=== PATIENT | male | born 1990 | race Caucasian/White ===

== ENCOUNTER 2017-08-18 19:12 | Emergency (ER) | payer SELFPAY ==
[~2017-08-18] VITALS: Ht 177.8 cm; Wt 79.3 kg
[~2017-08-18 19:12] MED LIST: HYDR-3533 PO; IBUP800T23 PO
[2017-08-18] MEDS ORDERED: IOHEXOL 350 MG/ML 10 ML VIAL (for RAD DIAG) IVCONTRAST ONE (19:13)
[2017-08-18 19:16] VITALS: BP 149/63; PULSE 79; RESP 16; TEMP 98.3; O2SAT 97
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
[2017-08-18] MEDS ORDERED: SODIUM CHLORIDE 0.9% FLUSH 10 ML FLUSH IV FLUSH PRN (19:45)
[2017-08-18 19:54] LABS: BLOOD, URINE NEG (NEG); GLUCOSE,URINE NEG (NEG); KETONE, URINE NEG (NEG); NITRITE,URINE NEG (NEG)
[2017-08-18 19:55] LABS: AUTOMATED NEUTROPHIL # 3.9 TH/MM3 (1.8-7.7); BASOPHIL % 0.3 % (0.0-2.0); EOSINOPHIL # 0.1 TH/MM3 (0-0.4); EOSINOPHIL % 1.6 % (0.0-4.0); HEMATOCRIT 40.8 % (39.0-51.0); HEMO FLAGS DIFF FINAL; LYMPH % 34.6 % (9.0-44.0); LYMPHOCYTE # 2.4 TH/MM3 (1.0-4.8); MEAN CELL VOLUME 84.6 FL (80.0-100.0); MEAN CORPUSCULAR HEMOGLOBIN 28.8 PG (27.0-34.0); MONO % 7.6 % (0.0-8.0); NEUT % 55.9 % (16.0-70.0); PLATELET COUNT 261 TH/MM3 (150-450); RED BLOOD COUNT 4.82 MIL/MM3 (4.50-5.90); RED CELL DISTRIBUTION WIDTH 12.8 % (11.6-17.2); WHITE BLOOD COUNT 6.9 TH/MM3 (4.0-11.0)
[2017-08-18 19:58] LABS: RBC, URINE 0-2 /hpf (0-3); SQUAMOUS EPITHELIAL CELL URINE 0-5 /hpf (0-5); URINE COLOR YELLOW (YELLW/STRAW); WBC, URINE 0-2 /hpf (0-5)
[2017-08-18 19:59] LABS: COMMENT (UR) CULT NOT INDICATED; CULTURE IF INDICATED CULT NOT INDICATED
[2017-08-18 20:08] LABS: BICARBONATE 27.9 MEQ/L (21.0-32.0)
[2017-08-18 20:11] LABS: APTT (PATIENT) 28.7 SEC (24.3-30.1); PROTHROMBIN TIME - PATIENT 10.3 SEC (9.8-11.6)
[2017-08-18 20:31] VITALS: O2SAT 97
[2017-08-18 20:35] VITALS: BP 139/55; PULSE 66; RESP 16; O2SAT 97
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
== END 2017-08-18 21:38 | disposition home or self-care (01) ==
LOC: PHED 19:12
DX: S20.212A Contusion of left front wall of thorax, initial encounter (principal); N28.9 Disorder of kidney and ureter, unspecified; W19.XXXA Unspecified fall, initial encounter; Y93.75 Activity, martial arts
CPT/HCPCS: 71101; 74177; 80048; 81001; 85025; 85610; 85730; 99285; Q9967

== ENCOUNTER 2017-12-26 19:48 | Emergency (ER) | payer SELFPAY ==
[~2017-12-26] VITALS: Ht 177.8 cm; Wt 77.7 kg
[2017-12-26 20:23] VITALS: BP 116/64; PULSE 100; RESP 18; TEMP 98.9; O2SAT 98
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
[2017-12-26] MEDS ORDERED: PROM25TA10 PO (21:07)
[2017-12-26] MEDS ORDERED: PANT40TA3 PO (21:07)
[2017-12-26] MEDS ORDERED: LORA-392 PO (21:07)
[2017-12-26] MEDS ORDERED: CARA1TAB6 PO (21:07)
[2017-12-26] MEDS ORDERED: IBUP-232 PO (21:11)
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
[2017-12-26] MEDS ORDERED: TYLETAB34 PO (22:09)
== END 2017-12-26 22:18 | disposition home or self-care (01) ==
LOC: PHED 19:48 → PHEFT 22:18
DX: S82.64XA Nondisplaced fracture of lateral malleolus of right fibula, initial encounter for closed fracture (principal); K21.9 Gastro-esophageal reflux disease without esophagitis; Y93.72 Activity, wrestling; Z79.899 Other long term (current) drug therapy
CPT/HCPCS: 29515; 73610; 73630; 99283; E0113